=== PATIENT | male | born 1975 | race Caucasian/White ===

== ENCOUNTER 2025-02-06 12:24 | Emergency (ER) | payer SELFPAY ==
[2025-02-06 12:35] VITALS: BP 138/100
== END 2025-02-06 14:45 | disposition left against medical advice (07) ==
LOC: EMR 12:24
PROVIDERS: EMERGENCY PHYSICIAN Emergency Medicine
DX: M25.562 Pain in left knee (principal); Z53.21 Procedure and treatment not carried out due to patient leaving prior to being seen by health care provider
CPT/HCPCS: 73564